=== PATIENT | male | born 1990 | race Hispanic/Latino ===

== ENCOUNTER 2021-01-31 22:43 | Emergency (ER) | payer OTHER, SELFPAY ==
[2021-02-01] MEDS ORDERED: HYDROCODONE/APAP 10/325 TAB ONE (00:26)
[2021-02-01] MEDS ORDERED: TETANUS & DIPHTHERIA TOX,ADULT 0.5 ML VIAL ONE (00:26)
--- NOTE | 2021-02-01 00:48 | EDPHYS ---
Physician Documentation [facility] Name: Cristian Sethi Age: 30 yrs Sex: Male : 1990 Arrival Date: 01/31/2021 Time: 22:53 Bed 24 Private MD: ED Physician Brian Guzman HPI: 02/01 00:42 This 30 yrs old Male presents to ER via Ambulatory with complaints of Dog Bite.pm1 00:42 The patient was bitten on the right hand. Onset: The symptoms/episode began/occurred pm1 just prior to arrival. Animal information: The animal was reported to appear healthy. Animal's vaccinations are up to date. Patient's own dog. Secondary to the bite the patient reports multiple puncture wounds. Associated signs and symptoms: Pertinent positives: swelling at site, Pertinent negatives: bony tenderness, erythema at site, motor deficit, numbness distal to wound. The patient has not experienced similar symptoms in the past. The patient has not recently seen a physician. Historical: - Allergies: 01/31 23:35 No Known Allergies; bb - Home Meds: 23:35 None [Active]; bb - PMHx: 23:35 None; bb - PSHx: 23:35 None; bb - Immunization history:: Adult Immunizations up to date, Last tetanus immunization: unknown. - Social history:: Smoking status: Patient reports the use of cigarette tobacco products, denies chronic smoking, but will smoke occasionally, Patient/guardian denies using alcohol. ROS: 02/01 00:42 Constitutional: Negative for fever, chills, and weight loss. pm1 Cardiovascular: Negative for chest pain, palpitations, and edema, Respiratory: Negative for shortness of breath, cough, wheezing, and pleuritic chest pain. Neuro: Negative for headache, weakness, numbness, tingling, and seizure. MS/extremity: Positive for puncture, of the right hand, Negative for decreased range of motion, deformity. Skin: Positive for abrasion(s), puncture, of the right hand. Exam: 00:42 Constitutional: This is a well developed, well nourished patient who is awake, alert, pm1 and in no acute distress. Head/Face: Normocephalic, atraumatic. 00:42 Cardiovascular: Exam negative for acute changes, Rate: normal, Rhythm: regular, Pulses: no pulse deficits are appreciated. 00:42 Respiratory: Exam negative for acute changes, respiratory distress, shortness of breath. 00:42 Musculoskeletal/extremity: Extremities: grossly normal except: noted in the lateral aspect of right hand: puncture, noted in the palm of right hand: abrasion, ROM: full active range of motion, in the right hand, Patient able to move all fingers without difficult FROM. Able to fan fingers and make a fist without any difficulty. 00:42 Skin: Appearance: normal except for affected area, injury, puncture(s), that are superficial, of the right hand. 00:42 Neuro: Exam negative for acute changes, Orientation: is normal, Mentation: is normal, Motor: is normal, moves all fours, Sensation: is normal, no obvious gross deficits, Gait: is steady, at a normal pace, without difficulty. Vital Signs: 01/31 23:33 BP 150 / 72; Pulse 80; Resp 16 S; Temp 99.1(O); Pulse Ox 98% on R/A; Weight 95.25 kg bb (R); Height 5 ft. 0 in. (152.40 cm) (R); Pain 7/10; 02/01 01:17 BP 158 / 100; Pulse 99; Resp 16 S; Pulse Ox 97% on R/A; Pain 5/10; bb 01/31 23:33 Body Mass Index 41.01 (95.25 kg, 152.40 cm) bb MDM: 01/31 23:48 Patient medically screened. [facility] 02/01 00:41 Data reviewed: vital signs. Data interpreted: Pulse oximetry: on room air is 98 %. pm1 Interpretation: normal. 00:42 Counseling: I had a detailed discussion with the patient and/or guardian regarding: the pm1 historical points, exam findings, and any diagnostic results supporting the discharge/admit diagnosis, radiology results, the need for outpatient follow up, to return to the emergency department if symptoms worsen or persist or if there are any questions or concerns that arise at home. 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 Exp: bb 04/02/2022. Lot #: [id number]. } Route: IM; Site: right deltoid; 00:41 Follow up: Response: No adverse reaction bb 01:13 Drug: Augmentin (Amoxicillin-Clavulanate) 875 mg Route: PO; bb 01:13 Follow up: Response: Medication administered at discharge. bb Disposition: 06:40 Co-signature as Attending Physician, Brian Guzman MD I agree with the assessment and aidee plan of care. Disposition: 02/01/21 00:47 Discharged to Home. Impression: Bitten by dog, Puncture wound without foreign body of right hand. - Condition is Stable. - Discharge Instructions: Puncture Wound, Animal Bite. - Prescriptions for Augmentin 875- 125 mg Oral Tablet - take 1 tablet by ORAL route every 12 hours for 10 days; 20 tablet. Tramadol 50 mg Oral Tablet - take 1 tablet by ORAL route every 8 hours As needed as needed; 12 tablet. - Medication Reconciliation Form, Thank You Letter, Antibiotic Education, Prescription Opioid Use form. - Follow up: Emergency Department; When: As needed; Reason: Worsening of condition. Follow up: Private Physician; When: 2 - 3 days; Reason: Recheck today's complaints, Continuance of care, Re-evaluation by your physician. - Problem is new. - Symptoms have improved. Signatures: Dispatcher [employer] Brian Mock MD MD cha Ballard, Brenda, CRISTINA RN Candelario Flores, QUENCHER OPERATOR QUENCHER OPERATOR pm1 Corrections: (The following items were deleted from the chart) 01:18 00:47 02/01/2021 00:47 Discharged to Home. Impression: Bitten by dog; Puncture wound bb without foreign body of right hand. Condition is Stable. Forms are Medication Reconciliation Form, Thank You Letter, Antibiotic Education, Prescription Opioid Use. Follow up: Emergency Department; When: As needed; Reason: Worsening of condition. Follow up: Private Physician; When: 2 - 3 days; Reason: Recheck today's complaints, Continuance of care, Re-evaluation by your physician. Problem is new. Symptoms have improved. pm1
--- NOTE | 2021-02-01 00:48 | ER ---
Nurse's Notes [facility] Name: Cristian Sethi Age: 30 yrs Sex: Male : 1990 Arrival Date: 01/31/2021 Time: 22:53 Bed 24 Private MD: Diagnosis: Bitten by dog;Puncture wound without foreign body of right hand Presentation: 01/31 23:33 Chief complaint: Patient states: he was bit by his dog approx an hour ago PD was bb notified pt has multiple linear lacerations to right hand. Coronavirus screen: At this time, the client does not indicate any symptoms associated with coronavirus-19. Ebola Screen: No symptoms or risks identified at this time. Initial Sepsis Screen: Does the patient meet any 2 criteria? No. Patient's initial sepsis screen is negative. Does the patient have a suspected source of infection? No. Patient's initial sepsis screen is negative. Risk Assessment: Do you want to hurt yourself or someone else? Patient reports no desire to harm self or others. Onset of symptoms was January 31, 2021. 23:33 Method Of Arrival: Ambulatory 23:33 Acuity: JOLIE 4 bb Triage Assessment: 23:35 Bite description: bite sustained to right hand by a dog, animal information: bb vaccination(s) is not up to date. General: Appears uncomfortable, Behavior is calm, cooperative. Pain: Complains of pain in right hand Pain currently is 7 out of 10 on a pain scale. Neuro: Level of Consciousness is awake, alert, obeys commands, Oriented to person, place, time, situation. Cardiovascular: No deficits noted. Respiratory: Respiratory effort is even, unlabored, Respiratory pattern is regular. GI: No signs and/or symptoms were reported involving the gastrointestinal system. Derm: Skin is pink, warm \T\ dry. Wound noted right hand Wound is multiple linear lacerations from dog bite. Musculoskeletal: Circulation, motion, and sensation intact. Historical: - Allergies: 23:35 No Known Allergies; bb - Home Meds: 23:35 None [Active]; bb - PMHx: 23:35 None; bb - PSHx: 23:35 None; bb - Immunization history:: Adult Immunizations up to date, Last tetanus immunization: unknown. - Social history:: Smoking status: Patient reports the use of cigarette tobacco products, denies chronic smoking, but will smoke occasionally, Patient/guardian denies using alcohol. Screenin:45 Abuse screen: Denies threats or abuse. Nutritional screening: No deficits noted. bb Tuberculosis screening: No symptoms or risk factors identified. Fall Risk None identified. Assessment: 23:45 Reassessment: No changes from previously documented assessment. see triage assessment. bb Derm: Skin is intact, Wound noted right hand Wound is multiple small lacerations from dog bite. 02/01 01:16 Reassessment: Patient is alert, oriented x 3, equal unlabored respirations, skin bb warm/dry/pink. bandage to right hand in place clean, dry and intact pt states he is feeling better now. Pt verbalized understanding of and agrees to plan of care discharge instructions given pt ambulated with steady gait to exit accompanied by family. Vital Signs: 01/31 23:33 BP 150 / 72; Pulse 80; Resp 16 S; Temp 99.1(O); Pulse Ox 98% on R/A; Weight 95.25 kg bb (R); Height 5 ft. 0 in. (152.40 cm) (R); Pain 7/10; 02/01 01:17 BP 158 / 100; Pulse 99; Resp 16 S; Pulse Ox 97% on R/A; Pain 5/10; bb 01/31 23:33 Body Mass Index 41.01 (95.25 kg, 152.40 cm) bb ED Course: 01/31 22:53 Patient arrived in ED. am4 23:35 Triage completed. bb 23:35 Arm band placed on Patient placed in an exam room, on a stretcher, on pulse oximetry. bb Family accompanied patient. 23:45 Patient has correct armband on for positive identification. Adult w/ patient. bb 23:45 No provider procedures requiring assistance completed. Patient did not have IV access bb during this emergency room visit. 23:46 Candelario Gerardo NP is PHCP. pm1 23:46 Brian Guzman MD is Attending Physician. pm1 02/01 00:30 Wound care: to laceration located on right hand was cleaned with Hibiclens, dressed bb with 4X4s, jori wrap, Patient tolerated well. 00:58 Hand Right 3 View XRAY In Process Unspecified. EDMS 01:03 Em, Aliza, RN is Primary Nurse. 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 Exp: bb 04/02/2022. Lot #: [id number]. } Route: IM; Site: right deltoid; 00:41 Follow up: Response: No adverse reaction bb 01:13 Drug: Augmentin (Amoxicillin-Clavulanate) 875 mg Route: PO; bb 01:13 Follow up: Response: Medication administered at discharge. ronald Outcome: 00:47 Discharge ordered by . pm1 01:17 Discharged to home ambulatory, with family. bb 01:17 Condition: stable 01:17 Discharge instructions given to patient, Instructed on discharge instructions, follow up and referral plans. medication usage, wound care, Demonstrated understanding of instructions, follow-up care, medications, wound care, Prescriptions given X 2. 01:18 Patient left the ED. bb Signatures: Dispatcher [employer] Aliza Shay RN RN bb Marinas, Patrick, DIXIE BELL NECK HAMMERER pm1 Mayda Quesada am4
[2021-02-01] MEDS ORDERED: AMOX/K CLAV 875 MG TAB ONE (01:26)
[2021-02-01 02:47] VITALS: TEMP 99.1
[2021-02-01 02:48] VITALS: BP 158/100; O2SAT 97
--- NOTE | 2021-02-01 07:48 | RAD REPORT ---
EXAM DESCRIPTION: RAD - Hand Right 3 View - 02/01/2021 12:58 am CLINICAL HISTORY: Right hand pain status post injury FINDINGS: No fracture or dislocation is seen. No radiopaque foreign body
== END 2021-02-01 01:18 | disposition home or self-care (01) ==
LOC: ER 22:43
DX: S61.431A Puncture wound without foreign body of right hand, initial encounter (principal); W54.0XXA Bitten by dog, initial encounter; Z23 Encounter for immunization; F17.210 Nicotine dependence, cigarettes, uncomplicated
CPT/HCPCS: 90471; 90714; 99284